=== PATIENT | male | born 1980 ===

== ENCOUNTER 2020-03-29 07:59 | Outpatient (CLI) | payer BC, SELFPAY ==
[2020-03-31 13:56] LABS: SARS-CoV-2 RNA Undetected (Undetected); SARS-CoV-2 Specimen Source Nasopharynx
== END 2020-03-29 08:19 ==
PROVIDERS: Visit Provider General Practice
DX: Z11.59 Encounter for screening for other viral diseases (principal)
CPT/HCPCS: U0003